=== PATIENT | male | born 1960 | race Two or more races ===

== ENCOUNTER 2018-11-13 16:24 | Emergency (ER) | payer OTHER ==
[2018-11-13] MEDS ORDERED: Sodium Chloride 0.9% 10 ML Syringe FLUSH PRN (17:44)
[2018-11-13 18:24] LABS: ANION GAP 10.5; CHLORIDE,CL 100 mmol/L (101-111); SODIUM,NA 135 mmol/L (135-145)
[2018-11-13] MEDS ORDERED: Iopamidol 612 MG/ML 100 ML Bottle IVPUSH ONE (19:21)
[2018-11-13] MEDS ORDERED: Sodium Chloride 0.9% 1,000 ML IV ONE (19:28)
--- NOTE | 2018-11-13 22:28 | EDM.PDOC ---
<Jeison Cheek - Last Filed: 11/13/18 22:22> ED HPI GENERAL MEDICAL PROBLEM - General Chief Complaint: General Stated Complaint: LOW BLOOD PRESSURE & OTHER PROBLEMS Time Seen by Provider: 11/13/18 17:00 - Related Data Allergies Allergy/AdvReac Type Severity Reaction Status Date / Time No Known Allergies Allergy Verified 11/13/18 16:38 Home Meds: Home Meds Alum Hydroxide/Mag Carbonate [Acid Gone] 1 tab PO DAILY 11/13/18 [History] Aspirin [Halfprin] 81 mg PO DAILY 11/13/18 [History] Cholecalciferol (Vitamin D3) [Vitamin D3] 1,000 unit PO DAILY 11/13/18 [History] Ciprofloxacin [Cipro XR 500 MG Tablet] 500 mg PO DAILY 11/13/18 [History] Ibuprofen 600 mg PO 11/13/18 [History] Levothyroxine Sodium [Synthroid] 150 mcg PO DAILY 11/13/18 [History] Multivits-Minerals/FA/Lycopene [One Daily [employer] Vibease Tablet] 1 each PO DAILY 11/13/18 [History] atorvaSTATin [Lipitor] 5 mg PO DAILY 11/13/18 [History] metroNIDAZOLE [Flagyl] 500 mg PO Q8H 11/13/18 [History] Past Medical History HEENT History: Reports: Impaired Vision Cardiovascular History: Reports: None Respiratory History: Reports: Intubation, Previous, Pneumonia, Recurrent Gastrointestinal History: Reports: Cholelithiasis, Diverticulosis, Pancreatitis , Other (See Below) Other Gastrointestinal History: fatty liver Genitourinary History: Reports: None Musculoskeletal History: Reports: None Neurological History: Reports: None Psychiatric History: Reports: None Endocrine/Metabolic History: Reports: None Hematologic History: Reports: Anemia Immunologic History: Reports: None Oncologic (Cancer) History: Reports: Esophageal Dermatologic History: Reports: None - Infectious Disease History Infectious Disease History: Reports: None - Past Surgical History Head Surgeries/Procedures: Reports: None Respiratory Surgical History: Reports: Other (See Below) Other Respiratory Surgeries/Procedures: chest tubes x3 in 2016 Oncologic Surgical History: Reports: Other (See Below) Other Oncologic Surgeries/Procedures: esophagealectomy Social & Family History - Family History Family Medical History: Noncontributory - Tobacco Use Smoking Status *Q: Never Smoker Second Hand Smoke Exposure: No - Caffeine Use Caffeine Use: Reports: Coffee - Recreational Drug Use Recreational Drug Use: No Course - Vital Signs Last Recorded V/S: Last Vital Signs Temp 100 F 11/13/18 22:32 Pulse 102 H 11/13/18 22:32 Resp 16 11/13/18 22:32 BP 100/77 11/13/18 22:32 Pulse Ox 98 11/13/18 22:32 - Orders/Labs/Meds Orders: Active Orders 24 hr Category Date Time Status Peripheral IV Care [RC] . DIRECTED Care 11/13/18 17:45 Active CULTURE BLOOD [BC] Stat Lab 11/13/18 18:43 Received CULTURE BLOOD [BC] Stat Lab 11/13/18 18:49 Received Blood Culture x2 Reflex Set [OM.PC] Stat Oth 11/13/18 18:25 Ordered Peripheral IV Insertion Adult [OM.PC] Stat Oth 11/13/18 17:44 Ordered Labs: Laboratory Tests 11/13/18 11/13/18 11/13/18 Range/Units 17:54 17:54 18:43 WBC 7.6 (5.0-10.0) 10^3/uL RBC 4.20 L (4.6-6.2) 10^6/uL Hgb 11.6 L (14.0-18.0) g/dL Hct 36.8 L (40.0-54.0) % MCV 87.6 (80-100) fL MCH 27.6 (27.0-34.0) pg MCHC 31.5 L (33.0-35.0) g/dL Plt Count 368 (150-450) 10^3/uL Neut % (Auto) 71.5 (42.2-75.2) % Lymph % (Auto) 6.9 L (20.5-50.1) % [place] % (Auto) 7.4 (2-8) % Eos % (Auto) 13.7 H (1.0-3.0) % Baso % (Auto) 0.5 (0.0-1.0) % Sodium 135 (135-145) mmol/L Potassium 3.5 L (3.6-5.0) mmol/L Chloride 100 L (101-111) mmol/L Carbon Dioxide 28.0 (21.0-31.0) mmol/L Anion Gap 10.5 BUN 6 L (7-18) mg/dL Creatinine 0.8 (0.6-1.3) mg/dL Est Cr Clr Drug Dosing 109.81 mL/min Estimated GFR (MDRD) > 60 BUN/Creatinine Ratio 7.50 Glucose 128 H (74-105) mg/dL Lactic Acid 1.6 (0.5-2.2) mmol/L Calcium 7.8 L (8.4-10.2) mg/dl Total Bilirubin 0.2 (0.2-1.0) mg/dL AST 17 (10-42) IU/L ALT 9 L (10-60) IU/L Alkaline Phosphatase 68 (42-121) IU/L Total Protein 6.7 (6.7-8.2) g/dl Albumin 2.9 L (3.2-5.5) g/dl Globulin 3.8 Albumin/Globulin Ratio 0.76 Amylase 35 (28-100) U/L Lipase 96 H (22-51) U/L Meds: Medications Discontinued Medications Generic Name Dose Route Start Last Admin Trade Name Freq PRN Reason Stop Dose Admin Sodium Chloride 1,000 mls @ 999 mls/hr 11/13/18 19:28 11/13/18 19:34 Normal Saline IV 11/13/18 20:28 999 mls/hr .BOLUS ONE Administration Iopamidol 100 ml 11/13/18 19:21 11/13/18 19:37 Isovue-300 (61%) IVPUSH 11/13/18 19:22 100 ml ONETIME ONE Administration Sodium Chloride 10 ml 11/13/18 17:44 11/13/18 17:56 Saline Flush FLUSH 10 ml ASDIRECTED PRN Administration Keep Vein Open Departure - Departure Disposition: DC/Tfer to [facility] 02 Clinical Impression: Colitis, Nephrolithiasis - Discharge Information Referrals: PCP,Unobtain [Primary Care Provider] - Forms: ED Department Discharge, Interfacility Transfer EMTALA - My Orders Last 24 Hours: My Active Orders 11/13/18 17:44 Peripheral IV Insertion Adult [OM.PC] Stat 11/13/18 17:45 Peripheral IV Care [RC] . DIRECTED 11/13/18 18:25 Blood Culture x2 Reflex Set [OM.PC] Stat 11/13/18 18:43 CULTURE BLOOD [BC] Stat 11/13/18 18:49 CULTURE BLOOD [BC] Stat - Assessment/Plan Last 24 Hours: My Active Orders 11/13/18 17:44 Peripheral IV Insertion Adult [OM.PC] Stat 11/13/18 17:45 Peripheral IV Care [RC] . DIRECTED 11/13/18 18:25 Blood Culture x2 Reflex Set [OM.PC] Stat 11/13/18 18:43 CULTURE BLOOD [BC] Stat 11/13/18 18:49 CULTURE BLOOD [BC] Stat <Sarah Perez - Last Filed: 11/14/18 16:08> ED HPI GENERAL MEDICAL PROBLEM - General Source of Information: Reports: Patient, Family, RN, RN Notes Reviewed History Limitations: Reports: No Limitations - History of Present Illness INITIAL COMMENTS - FREE TEXT/NARRATIVE: Pt to ER with with c/o low blood pressure at home, and bleeding from the rectum. Patient states that he has been having bleeding from the rectum for 4-5 weeks. States he has a hx of esophageal cancer with esophageal resection. Patient was concerned about the rectal bleeding and went to see his GI doctor. Patient had CT scan of chest and abdomen. Was dx with diffuse diverticulitis. Started on Cipro and Flagyl. These meds are almost completed. This was Nov 04. He states he has also been having fever and chills and diarrhea since Nov 03. States he followed up with Dr. Mcdaniel last week, and they discussed a colonoscopy at some point in the near future. He states his last upper GI endo was done in August. Patient states he is very weak and tired out, feels dehydrated. Due to esophageal resection, he can only drink small amounts of fluids. Onset: Gradual ED ROS GENERAL - Review of Systems Review Of Systems: ROS reveals no pertinent complaints other than HPI. ED EXAM, GENERAL - Physical Exam Exam: See Below Exam Limited By: No Limitations General Appearance: Alert, WD/WN, No Apparent Distress Eye Exam: Bilateral Eye: EOMI, Normal Inspection Ears: Normal External Exam, Hearing Grossly Normal Nose: Normal Inspection Throat/Mouth: Normal Voice, No Airway Compromise, Other (dry mucous membranes) Head: Atraumatic, Normocephalic Neck: Normal Inspection, Supple, Non-Tender, Full Range of Motion Respiratory/Chest: No Respiratory Distress, Lungs Clear, Normal Breath Sounds, No Accessory Muscle Use, Chest Non-Tender Cardiovascular: Normal Peripheral Pulses, Regular Rate, Rhythm, No Edema, No Gallop, No JVD, No Murmur, No Rub Peripheral Pulses: 2+: Radial (L), Radial (R) GI/Abdominal: Normal Bowel Sounds, Soft, No Organomegaly, No Distention, No Abnormal Bruit, No Mass, Pelvis Stable, Tender (generalized) (Male) Exam: Deferred Rectal (Males) Exam: Deferred Back Exam: Normal Inspection, Full Range of Motion, NT Extremities: Normal Inspection, Normal Range of Motion, Non-Tender, Normal Capillary Refill, No Pedal Edema Neurological: Alert, Oriented, CN II-XII Intact, Normal Cognition, Normal Gait, Normal Reflexes, No Motor/Sensory Deficits Psychiatric: Normal Affect, Normal Mood Skin Exam: Warm, Dry, Intact, Normal Color, No Rash Lymphatic: No Adenopathy Course - Radiology Interpretation Free Text/Narrative:: CT of Abdomen/Pelvis with contrast: FINDINGS: Lungs: Lung bases have a small amount of platelike atelectasis or parenchymal scar. Liver: No suspicious lesions. Gallbladder and bile ducts: No acute or concerning findings. Pancreas: There are a few pancreatic calcifications. Spleen: No suspicious lesions. Adrenals: No suspicious nodule. Kidneys and ureters: 10 mm nonobstructing left renal calculus. Stomach and bowel: Esophagectomy with gastric pullup. Diffuse colonic wall thickening with moderate inflammatory change. Appendix: No evidence of appendicitis. Intraperitoneal space: No free air. No significant fluid collection. Vasculature: Unremarkable. No acute findings Lymph nodes: Unremarkable. Bladder: Unremarkable as visualized. Reproductive: Unremarkable as visualized. Bones/joints: Unremarkable. No acute fracture. Soft tissues: Unremarkable. IMPRESSION: Diffuse colitis could be infectious or inflammatory bowel disease. Left-sided nephrolithiasis. Thank you for allowing us to participate in the care of your patient. Dictated and Authenticated by: Sam Brooks MD 11/13/2018 9:30 PM Central Time ([place] & [place]) - Re-Assessments/Exams Free Text/Narrative Re-Assessment/Exam: Discussed patient case with Dr. Sauer. He states that the patient should be transferred to [place] for referral to GI. Discussed patient case with [facility]. He states that he feels if the CT has not changed, the patient can be managed in [place]. Patient handed over to Dr. Cheek at shift changes. CT results pending. Departure - Departure Time of Disposition: 22:41 Condition: Fair - Discharge Information *PRESCRIPTION DRUG MONITORING PROGRAM REVIEWED*: No *COPY OF PRESCRIPTION DRUG MONITORING REPORT IN PATIENT BO: No
== END 2018-11-13 22:43 ==
LOC: DL.ED 16:24
DX: K52.9 Noninfective gastroenteritis and colitis, unspecified (principal); N20.0 Calculus of kidney; Z98.890 Other specified postprocedural states; Z79.82 Long term (current) use of aspirin; Z79.899 Other long term (current) drug therapy
CPT/HCPCS: 36415; 74177; 80053; 82150; 83605; 83690; 85025; 87040; 96360; 99285; J7030; Q9967

== ENCOUNTER 2019-04-10 11:58 | Emergency (ER) | payer OTHER ==
[2019-04-10] MEDS ORDERED: Sodium Chloride 0.9% 1,000 ML IV ONE (13:12)
[2019-04-10] MEDS ORDERED: Sodium Chloride 0.9% 10 ML Syringe FLUSH PRN (13:12)
[2019-04-10] MEDS ORDERED: Ondansetron 4 MG/2 ML SDV IV ONE (13:19)
[2019-04-10 13:59] LABS: ANION GAP 13.7; CHLORIDE,CL 98 mmol/L (101-111); SODIUM,NA 135 mmol/L (135-145)
--- NOTE | 2019-04-10 14:14 | EDM.PDOC ---
Scribed by Cayla Stevenson 04/10/19 1322 for Pedrito Michel MD ED HPI GENERAL MEDICAL PROBLEM - General Chief Complaint: Gastrointestinal Problem Stated Complaint: DEHYDRATION POSSIBLE Time Seen by Provider: 04/10/19 13:12 Source of Information: Reports: Patient, RN, RN Notes Reviewed History Limitations: Reports: No Limitations - History of Present Illness INITIAL COMMENTS - FREE TEXT/NARRATIVE: Patient presents to ER via POV with . HE was diagnosed with ulcerative colitis in October. He was in hospital at [facility] (March 25) got 3 units of RBC's while in hospital (hg 7.6). Patient states feels dehydrate. He also states has abdominal pain that comes and goes, not having any at present. He states not bleeding as much. He states bleeds with stools. While in hospital had positive blood cultures and C. Diff, had PICC line established and on outpatient antibiotics. The PICC discontinued on Thursday. He has an appointment next Thursday for blood work (). He is able to eat and drink but not as much, is down with his weight over the last couple of months. Onset: Gradual Duration: Getting Worse Location: Reports: Abdomen Severity: Moderate Improves with: Reports: None Worsens with: Reports: None Associated Symptoms: Reports: No Other Symptoms - Related Data Allergies Allergy/AdvReac Type Severity Reaction Status Date / Time No Known Allergies Allergy Verified 04/10/19 13:01 Home Meds: Home Meds Cholecalciferol (Vitamin D3) [Vitamin D3] 1,000 unit PO DAILY 11/13/18 [History] Levothyroxine Sodium [Synthroid] 125 mcg PO DAILY 11/13/18 [History] atorvaSTATin [Lipitor] 5 mg PO DAILY 11/13/18 [History] Acetaminophen 650 mg PO Q4HR PRN 04/06/19 [History] Pantoprazole [ProTONIX] 40 mg PO DAILY 04/06/19 [History] Potassium Chloride 8 meq PO DAILY 04/06/19 [History] predniSONE [Prednisone] 20 mg PO BID 04/06/19 [History] Past Medical History HEENT History: Reports: Impaired Vision Other HEENT History: wears glasses Cardiovascular History: Reports: None Respiratory History: Reports: COPD, Intubation, Previous, Pneumonia, Recurrent Gastrointestinal History: Reports: Cholelithiasis, Diverticulosis, Pancreatitis , Other (See Below) Other Gastrointestinal History: fatty liver. C-Diff. ulcerative colitis Genitourinary History: Reports: None Other Genitourinary History: enlarged prostate Musculoskeletal History: Reports: None Neurological History: Reports: None Psychiatric History: Reports: None Endocrine/Metabolic History: Reports: Hypothyroidism Hematologic History: Reports: Anemia, Blood Transfusion(s) Immunologic History: Reports: None Oncologic (Cancer) History: Reports: Esophageal, Other (See Below) Other Oncologic History: stomach Dermatologic History: Reports: None - Infectious Disease History Infectious Disease History: Reports: C-Difficile - Past Surgical History Head Surgeries/Procedures: Reports: None Respiratory Surgical History: Reports: Other (See Below) Other Respiratory Surgeries/Procedures: chest tubes x3 in 2016 GI Surgical History: Reports: Colonoscopy, EGD, Other (See Below) Other GI Surgeries/Procedures: Stomach/esophageal cancer. upper 1/3 of stomach and 2/3 of esophagus removed. Other Musculoskeletal Surgeries/Procedures:: Surgery to removed bones in thumbs bilateral Oncologic Surgical History: Reports: Other (See Below) Other Oncologic Surgeries/Procedures: esophagealectomy Social & Family History - Family History Family Medical History: Noncontributory - Tobacco Use Smoking Status *Q: Never Smoker Second Hand Smoke Exposure: No - Caffeine Use Caffeine Use: Reports: None - Recreational Drug Use Recreational Drug Use: No ED ROS GENERAL - Review of Systems Review Of Systems: Comprehensive ROS is negative, except as noted in HPI. ED EXAM, GENERAL - Physical Exam Exam: See Below Exam Limited By: No Limitations General Appearance: Alert, WD/WN, No Apparent Distress Eye Exam: Bilateral Eye: Normal Inspection (No scleral icterus) Nose: Normal Inspection Throat/Mouth: Normal Inspection, Normal Lips, Normal Teeth, Normal Gums, Normal Oropharynx, Normal Voice, No Airway Compromise Head: Atraumatic, Normocephalic Neck: Normal Inspection Respiratory/Chest: No Respiratory Distress, Lungs Clear, Normal Breath Sounds, No Accessory Muscle Use, Chest Non-Tender Cardiovascular: Regular Rate, Rhythm, No Edema, Tachycardia GI/Abdominal: Normal Bowel Sounds, Soft, No Distention, No Abnormal Bruit, Tender (Mild generalized abdominal tenderness.). No: Guarding, Rigid, Rebound Back Exam: Normal Inspection Extremities: Normal Inspection Neurological: Alert, Oriented, No Motor/Sensory Deficits Psychiatric: Normal Mood Skin Exam: Warm, Dry, Intact, Normal Color, No Rash Course - Vital Signs Last Recorded V/S: Last Vital Signs Temp 98 F 04/10/19 12:46 Pulse 79 04/10/19 13:24 Resp 16 04/10/19 12:46 BP 108/69 04/10/19 13:24 Pulse Ox 98 04/10/19 12:46 - Orders/Labs/Meds Orders: Active Orders 24 hr Category Date Time Status Peripheral IV Care [RC] . DIRECTED Care 04/10/19 13:12 Active Sodium Chloride 0.9% [Saline Flush] Med 04/10/19 13:12 Active 10 ml FLUSH ASDIRECTED PRN Peripheral IV Insertion Adult [OM.PC] Stat Oth 04/10/19 13:11 Ordered Medication Orders Sodium Chloride (Saline Flush) 10 ml FLUSH ASDIRECTED PRN PRN Reason: Keep Vein Open Last Admin: 04/10/19 13:35 Dose: 10 ml Labs: Laboratory Tests 04/10/19 04/10/19 Range/Units 13:33 13:33 WBC 6.8 (5.0-10.0) 10^3/uL RBC 3.80 L (4.6-6.2) 10^6/uL Hgb 9.0 L D (14.0-18.0) g/dL Hct 29.6 L (40.0-54.0) % MCV 77.9 L D (80-100) fL MCH 23.7 L (27.0-34.0) pg MCHC 30.4 L (33.0-35.0) g/dL Plt Count 442 (150-450) 10^3/uL Neut % (Auto) 81.5 H (42.2-75.2) % Lymph % (Auto) 9.4 L (20.5-50.1) % [place] % (Auto) 7.2 (2-8) % Eos % (Auto) 1.8 (1.0-3.0) % Baso % (Auto) 0.1 (0.0-1.0) % Sodium 135 (135-145) mmol/L Potassium 3.7 (3.6-5.0) mmol/L Chloride 98 L (101-111) mmol/L Carbon Dioxide 27.0 (21.0-31.0) mmol/L Anion Gap 13.7 BUN 10 (7-18) mg/dL Creatinine 0.9 (0.6-1.3) mg/dL Est Cr Clr Drug Dosing 93.50 mL/min Estimated GFR (MDRD) > 60 BUN/Creatinine Ratio 11.11 Glucose 101 (74-105) mg/dL Calcium 8.6 (8.4-10.2) mg/dl Total Bilirubin 0.5 (0.2-1.0) mg/dL AST 14 (10-42) IU/L ALT 15 (10-60) IU/L Alkaline Phosphatase 72 (42-121) IU/L Total Protein 6.8 (6.7-8.2) g/dl Albumin 2.7 L (3.2-5.5) g/dl Globulin 4.1 Albumin/Globulin Ratio 0.66 Meds: Medications Generic Name Dose Route Start Last Admin Trade Name Freq PRN Reason Stop Dose Admin Sodium Chloride 10 ml 04/10/19 13:12 04/10/19 13:35 Saline Flush FLUSH 10 ml ASDIRECTED PRN Administration Keep Vein Open Discontinued Medications Generic Name Dose Route Start Last Admin Trade Name Freq PRN Reason Stop Dose Admin Sodium Chloride 1,000 mls @ 999 mls/hr 04/10/19 13:12 04/10/19 13:35 Normal Saline IV 04/10/19 14:12 999 mls/hr .BOLUS ONE Administration Ondansetron HCl 4 mg 04/10/19 13:19 04/10/19 13:35 Zofran IV 04/10/19 13:20 4 mg ONETIME ONE Administration Departure - Departure Time of Disposition: 15:00 Disposition: Home, Self-Care 01 Condition: Fair Clinical Impression: Dehydration, History of ulcerative colitis, Chronic abdominal pain - Discharge Information *PRESCRIPTION DRUG MONITORING PROGRAM REVIEWED*: Not Applicable *COPY OF PRESCRIPTION DRUG MONITORING REPORT IN PATIENT BO: Not Applicable Instructions: Dehydration, Adult, [id number] Forms: ED Department Discharge Additional Instructions: Rx: Zofran 4mg [employer] P[employer] Protein Drink Follow up with your GI specialist to discuss the abdominal pain. Sepsis Event Note - Evaluation Sepsis Screening Result: No Definite Risk - Focused Exam Vital Signs: Vital Signs Temp Pulse Resp BP Pulse Ox 04/10/19 13:24 79 108/69 04/10/19 12:46 98 F 105 H 16 94/61 98 Date Exam was Performed: 04/10/19 Time Exam was Performed: 14:12 - My Orders Last 24 Hours: My Active Orders 04/10/19 13:11 Peripheral IV Insertion Adult [OM.PC] Stat 04/10/19 13:12 Peripheral IV Care [RC] . DIRECTED Sodium Chloride 0.9% [Saline Flush] 10 ml FLUSH ASDIRECTED PRN - Assessment/Plan Last 24 Hours: My Active Orders 04/10/19 13:11 Peripheral IV Insertion Adult [OM.PC] Stat 04/10/19 13:12 Peripheral IV Care [RC] . DIRECTED Sodium Chloride 0.9% [Saline Flush] 10 ml FLUSH ASDIRECTED PRN I have read and agree with the documentation that has been completed regarding this visit. By signing this record, I attest that the documentation was completed in my physical presence and is an accurate record of the encounter.
== END 2019-04-10 14:50 | disposition home or self-care (01) ==
LOC: DL.ED 11:58
DX: E86.0 Dehydration (principal); R10.9 Unspecified abdominal pain; G89.29 Other chronic pain; Z87.19 Personal history of other diseases of the digestive system
CPT/HCPCS: 36415; 80053; 85025; 96361; 96374; 99284; J2405; J7030

== ENCOUNTER 2019-11-05 09:29 | Emergency (ER) | payer OTHER ==
[2019-11-05] MEDS ORDERED: Sodium Chloride 0.9% 10 ML Syringe FLUSH PRN (09:40)
[2019-11-05 10:10] LABS: ANION GAP 10.5 mEq/L (7-13); CHLORIDE,CL 100 mmol/L (98-107); SODIUM,NA 138 mmol/L (136-145)
--- NOTE | 2019-11-05 10:13 | CR ---
PROCEDURE INFORMATION: Exam: XR Chest, 1 View Exam date and time: 11/05/2019 10:07 AM Age: 59 years old Clinical indication: Chest pain TECHNIQUE: Imaging protocol: XR of the chest Views: 1 view. COMPARISON: No relevant prior studies available. FINDINGS: Lungs: Focal airspace opacity is present within the left lower lobe concerning for possible pneumonia. Lungs are otherwise clear. There is no pulmonary edema. Pleural space: There is no pleural effusion or pneumothorax. Heart/Mediastinum: Heart size is normal. Bones/joints: Unremarkable. IMPRESSION: 1. Focal airspace opacity in the left lobe concerning for possible pneumonia.
--- NOTE | 2019-11-05 10:48 | EDM.PDOC ---
"<Hugo Roy - Last Filed: 11/05/19 11:22> ED HPI GENERAL MEDICAL PROBLEM - General Chief Complaint: Chest Pain Stated Complaint: CHEST PAIN Time Seen by Provider: 11/05/19 10:00 Source of Information: Reports: Patient History Limitations: Reports: No Limitations - History of Present Illness INITIAL COMMENTS - FREE TEXT/NARRATIVE: Patient is a 59 yo male here today with chest pain. His pain occurs on inspiration, particularly deep inspiration. It is located on the left central chest. It is sharp and repeatable with every inspiration. Patient was told 1.5 weeks ago, after testing that he has chronic bronchitis. He was started on steroid and spiriva at that time. He is not sure if that has any relavence to his chest pain. He has a chronic cough that is productive and has a 38-40 year history of smoking, having quitin 2016. Patient tried tylenol and ibuprofen at home for his pain which worked a little. Pain radiates to shoulder and back sometimes. No known trauma to the area. No known allergies. Currently a non-smoker. 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, Other (see below) (ibuprofen) Chest Pain Score (Numeric/FACES): 4 - Related Data Allergies Allergy/AdvReac Type Severity Reaction Status Date / Time adhesive tape Allergy Other Verified 11/05/19 09:37 Home Meds: Home Meds Cholecalciferol (Vitamin D3) [Vitamin D3] 1,000 unit PO DAILY 11/13/18 [History] Levothyroxine Sodium [Synthroid] 125 mcg PO DAILY 11/13/18 [History] atorvaSTATin [Lipitor] 5 mg PO DAILY 11/13/18 [History] Acetaminophen 650 mg PO Q4HR PRN 04/06/19 [History] Pantoprazole [ProTONIX] 40 mg PO DAILY 04/06/19 [History] Potassium Chloride 8 meq PO DAILY 04/06/19 [History] predniSONE [Prednisone] 20 mg PO BID 04/06/19 [History] Albuterol [Take Home: Albuterol 18 GM, 1 INH Pack] 2 puff INH Q4HR PRN 11/05/19 [History] Tiotropium [Spiriva HandiHaler] 2 puff IN DAILY 11/05/19 [History] Past Medical History HEENT History: Reports: Impaired Vision Other HEENT History: wears glasses Cardiovascular History: Reports: Hypertension Respiratory History: Reports: COPD, Intubation, Previous, Pneumonia, Recurrent Gastrointestinal History: Reports: Cholelithiasis, Diverticulosis, Pancreatitis, Other (See Below) Other Gastrointestinal History: fatty liver. C-Diff. ulcerative colitis Genitourinary History: Reports: None Other Genitourinary History: enlarged prostate Musculoskeletal History: Reports: None Neurological History: Reports: None Psychiatric History: Reports: None Endocrine/Metabolic History: Reports: Hypothyroidism Hematologic History: Reports: Anemia, Blood Transfusion(s) Immunologic History: Reports: None Oncologic (Cancer) History: Reports: Esophageal, Other (See Below) Other Oncologic History: stomach Dermatologic History: Reports: None - Infectious Disease History Infectious Disease History: Reports: Chicken Pox - Past Surgical History Head Surgeries/Procedures: Reports: None Respiratory Surgical History: Reports: Other (See Below) Other Respiratory Surgeries/Procedures: chest tubes x3 in 2016 GI Surgical History: Reports: Colonoscopy, Colostomy, EGD, Other (See Below) Other GI Surgeries/Procedures: Stomach/esophageal cancer. upper 1/3 of stomach and 2/3 of esophagus removed. Other Musculoskeletal Surgeries/Procedures:: Surgery to removed bones in thumbs bilateral Oncologic Surgical History: Reports: Other (See Below) Other Oncologic Surgeries/Procedures: esophagealectomy Social & Family History - Family History Family Medical History: Noncontributory - Tobacco Use Smoking Status *Q: Never Smoker Second Hand Smoke Exposure: No - Caffeine Use Caffeine Use: Reports: Coffee - Recreational Drug Use Recreational Drug Use: No ED ROS GENERAL - Review of Systems Review Of Systems: Comprehensive ROS is negative, except as noted in HPI. ED EXAM, GENERAL - Physical Exam Exam: See Below Exam Limited By: No Limitations General Appearance: Alert, No Apparent Distress Ears: Normal External Exam Ear Exam: Bilateral Ear: Auricle Normal Nose: Normal Inspection Throat/Mouth: Other (upper partial) Head: Atraumatic Neck: Normal Inspection Respiratory/Chest: No Respiratory Distress, Rhonchi (lower left on deep inspiration) Cardiovascular: Normal Peripheral Pulses, Regular Rate, Rhythm, No Edema Peripheral Pulses: 2+: Radial (L), Radial (R) GI/Abdominal: Soft (Male) Exam: Deferred Rectal (Males) Exam: Deferred Back Exam: Normal Inspection Extremities: Normal Inspection Neurological: Alert, Oriented, Normal Cognition Psychiatric: Normal Affect, Normal Mood Skin Exam: Warm, Dry, Intact, Normal Color Lymphatic: No Adenopathy Course - Vital Signs Text/Narrative:: Upon admission to the ED, patient received CBC, CMP, troponin, EKG, CXR. Results returned concerning for PNA on CXR. Trop negative. CT chest noncon ordered to further characterize the abnormal finding on CXR. CT chows lingular PNA. Will discharge to home with antibiotics and incentive spirometry. Departure - Departure Time of Disposition: 11:10 Disposition: Home, Self-Care 01 Condition: Fair Clinical Impression: Pneumonia Qualifiers: Pneumonia type: due to unspecified organism Laterality: left Lung location: unspecified part of lung Qualified Code(s): J18.9 - Pneumonia, unspecified organism - Discharge Information *PRESCRIPTION DRUG MONITORING PROGRAM REVIEWED*: Not Applicable *COPY OF PRESCRIPTION DRUG MONITORING REPORT IN PATIENT BO: Not Applicable Instructions: How to Use an Incentive Spirometer, Doxycycline tablets or capsules, Community-Acquired Pneumonia, Adult, [id number] Forms: ED Department Discharge Additional Instructions: See primary care provider in one week in clinic. Rx: Doxycycline 100mg: Take antibiotics as directed. Use incentive spirometer as directed by respiratory therapist. Seek care if your condition worsens, such as with severe shortness of breath or high fever. Sepsis Event Note (ED) - Evaluation Sepsis Screening Result: No Definite Risk <Pedrito Michel - Last Filed: 11/05/19 11:24> Course - Vital Signs Last Recorded V/S: Last Vital Signs Temp 98.4 F 11/05/19 09:34 Pulse 86 11/05/19 09:34 Resp 18 11/05/19 09:34 BP 148/95 H 11/05/19 09:34 Pulse Ox 94 L 11/05/19 09:34 - Orders/Labs/Meds Orders: Active Orders 24 hr Category Date Time Status EKG 12 Lead [EKG Documentation Completion] [RC] STAT Care 11/05/19 09:38 Active Incentive Spirometry [RT Incentive Spirometry] [RC] Care 11/05/19 11:06 Active ASDIRECTED Peripheral IV Care [RC] . DIRECTED Care 11/05/19 09:40 Active Sodium Chloride 0.9% [Saline Flush] Med 11/05/19 09:40 Active 10 ml FLUSH ASDIRECTED PRN Peripheral IV Insertion Adult [OM.PC] Routine Oth 11/05/19 09:40 Ordered Medication Orders Sodium Chloride (Saline Flush) 10 ml FLUSH ASDIRECTED PRN PRN Reason: Keep Vein Open Last Admin: 11/05/19 09:45 Dose: 10 ml Documented by: HELEN Labs: Laboratory Tests 11/05/19 11/05/19 Range/Units 09:38 09:38 WBC 7.2 (5.0-10.0) 10^3/uL RBC 4.86 (4.6-6.2) 10^6/uL Hgb 12.4 L D (14.0-18.0) g/dL Hct 39.3 L (40.0-54.0) % MCV 80.9 D (80-100) fL MCH 25.5 L (27.0-34.0) pg MCHC 31.6 L (33.0-35.0) g/dL Plt Count 225 D (150-450) 10^3/uL Neut % (Auto) 80.7 H (42.2-75.2) % Lymph % (Auto) 7.9 L (20.5-50.1) % [place] % (Auto) 7.5 (2-8) % Eos % (Auto) 3.6 H (1.0-3.0) % Baso % (Auto) 0.3 (0.0-1.0) % Sodium 138 (136-145) mmol/L Potassium 3.5 (3.5-5.1) mmol/L Chloride 100 (98-107) mmol/L Carbon Dioxide 31 (21-32) mmol/L Anion Gap 10.5 (7-13) mEq/L BUN 5 L (7-18) mg/dL Creatinine 0.85 (0.70-1.30) mg/dL Est Cr Clr Drug Dosing 99.00 mL/min Estimated GFR (MDRD) > 60 BUN/Creatinine Ratio 5.9 (No establ ref range) Glucose 159 H (74-99) mg/dL Calcium 8.9 (8.5-10.1) mg/dL Total Bilirubin 0.5 (0.2-1.0) mg/dL AST 27 (15-37) U/L ALT 43 (16-63) U/L Alkaline Phosphatase 156 H (46-116) U/L Troponin I < 0.017 (0.000-0.056) ng/mL Total Protein 8.1 (6.4-8.2) g/dL Albumin 3.6 (3.4-5.0) g/dL Globulin 4.5 Albumin/Globulin Ratio 0.8 Meds: Medications Generic Name Dose Route Start Last Admin Trade Name Freq PRN Reason Stop Dose Admin Sodium Chloride 10 ml 11/05/19 09:40 11/05/19 09:45 Saline Flush FLUSH 10 ml ASDIRECTED PRN Administration Keep Vein Open - Radiology Interpretation Free Text/Narrative:: [facility] Final Radiology Report Call: [phone] assistance Online chat: [email or web address] Name: DANO MATHIS Age: 59Years M Date: 11/05/2019 SSN: -- : [id number] Study: CT CHEST WO CONT Requesting Physician: Hugo Roy Images: [id number] Addl Studies: Provided Clinical History: pleuritic chest pain, left sided, abnl cxr Contrast: Without Contrast Medium: Contrast Amount: Contrast Method: Page 1 of 2 PROCEDURE INFORMATION: Exam: CT Chest Without Contrast Exam date and time: 11/05/2019 10:35 AM Age: 59 years old Clinical indication: Abnormal findings; Abnormal radiologic exam of lung or chest; Additional info: Pleuritic chest pain, left sided, abnl cxr TECHNIQUE: Imaging protocol: Computed tomography of the chest without contrast. Radiation optimization: All CT scans at this facility use at least one of these dose optimization techniques: automated exposure control; mA and/or kV adjustment per patient size (includes targeted exams where dose is matched to clinical indication); or iterative reconstruction. COMPARISON: CR Chest 1V Frontal 11/05/2019 10:07 AM FINDINGS: Lungs: There is focal airspace opacity within the lingula. The finding is concerning for possible pneumonia. There is no pulmonary edema. There is no pulmonary fibrosis or bronchiectasis. Mild diffuse bronchial wall thickening present suggesting superimposed bronchitis. Pleural space: Unremarkable. No pneumothorax. No pleural effusion. Heart: Unremarkable. No cardiomegaly. No pericardial effusion. Aorta: Unremarkable. No aortic aneurysm. Lymph nodes: Unremarkable. No enlarged lymph nodes. Bones/joints: Unremarkable. No acute fracture. Soft tissues: Unremarkable. IMPRESSION: 1. Focal airspace consolidation within the lingula concerning for pneumonia. DANO MATHIS | Final Radiology Report CONFIDENTIALITY STATEMENT This report is intended only for use by the referring physician, and only in accordance with law. If you received this in error, call [phone]. Page 2 of 2 Thank you for allowing us to participate in the care of your patient. Dictated and Authenticated by: René Carrion MD 11/05/2019 10:55 AM Central Time ([place] & [place]) - Re-Assessments/Exams Free Text/Narrative Re-Assessment/Exam: 11/05/19 11:04 I saw and evaluated the patient. Discussed with resident and agree with residents findings and plan as documented in the residents note. Sepsis Event Note (ED) - Focused Exam Vital Signs: Vital Signs Temp Pulse Resp BP Pulse Ox 11/05/19 09:34 98.4 F 86 18 148/95 H 94 L"
--- NOTE | 2019-11-05 10:55 | CT ---
PROCEDURE INFORMATION: Exam: CT Chest Without Contrast Exam date and time: 11/05/2019 10:35 AM Age: 59 years old Clinical indication: Abnormal findings; Abnormal radiologic exam of lung or chest; Additional info: Pleuritic chest pain, left sided, abnl cxr TECHNIQUE: Imaging protocol: Computed tomography of the chest without contrast. Radiation optimization: All CT scans at this facility use at least one of these dose optimization techniques: automated exposure control; mA and/or kV adjustment per patient size (includes targeted exams where dose is matched to clinical indication); or iterative reconstruction. COMPARISON: CR Chest 1V Frontal 11/05/2019 10:07 AM FINDINGS: Lungs: There is focal airspace opacity within the lingula. The finding is concerning for possible pneumonia. There is no pulmonary edema. There is no pulmonary fibrosis or bronchiectasis. Mild diffuse bronchial wall thickening present suggesting superimposed bronchitis. Pleural space: Unremarkable. No pneumothorax. No pleural effusion. Heart: Unremarkable. No cardiomegaly. No pericardial effusion. Aorta: Unremarkable. No aortic aneurysm. Lymph nodes: Unremarkable. No enlarged lymph nodes. Bones/joints: Unremarkable. No acute fracture. Soft tissues: Unremarkable. IMPRESSION: 1. Focal airspace consolidation within the lingula concerning for pneumonia.
== END 2019-11-05 11:25 | disposition home or self-care (01) ==
LOC: DL.ED 09:29
DX: J18.9 Pneumonia, unspecified organism (principal); I10 Essential (primary) hypertension; J44.9 Chronic obstructive pulmonary disease, unspecified; E03.9 Hypothyroidism, unspecified; Z79.899 Other long term (current) drug therapy; Z91.048 Other nonmedicinal substance allergy status
CPT/HCPCS: 36415; 71045; 71250; 80053; 84484; 85025; 93005; 94010; 99285-25

== ENCOUNTER 2020-10-11 04:32 | Emergency (ER) | payer OTHER ==
[2020-10-11] MEDS ORDERED: Aspirin 81 MG Tab.Chew PO ONE (04:54)
--- NOTE | 2020-10-11 04:59 | EDM.PDOC ---
ED HPI GENERAL MEDICAL PROBLEM - General Chief Complaint: Chest Pain Stated Complaint: CHEST AND BACK SIDE MORE ON LEFT SIDE Time Seen by Provider: 10/11/20 04:45 Source of Information: Reports: Patient History Limitations: Reports: No Limitations - History of Present Illness INITIAL COMMENTS - FREE TEXT/NARRATIVE: This 60 yo male patient reports to the ED with left sided chest pain that radiated to his left posterior shoulder. The patient reports his symptoms started at 0230 this morning while he was up using the bathroom. The patient reports he did take an 81 mg aspirin and 3 ibuprofen with some symptom relief. The patient reports he waited at home hoping it would go away. The patient also has a history of bronchitis. Onset: Today Onset Date: 10/11/20 Onset Time: 02:30 Duration: Constant Location: Reports: Chest (left sided chest pain radiating to the left shoulder blade) Quality: Reports: Ache, Dull Severity: Moderate Improves with: Reports: None Worsens with: Reports: None Context: Reports: Other Associated Symptoms: Reports: Chest Pain Treatments [employer]: Reports: Aspirin, NSAIDS Left Chest Pain Score (Numeric/FACES): 4 - Related Data Allergies Allergy/AdvReac Type Severity Reaction Status Date / Time adhesive tape Allergy Other Verified 10/11/20 05:16 Home Meds: Home Meds Cholecalciferol (Vitamin D3) [Vitamin D3] 1,000 unit PO DAILY 11/13/18 [History] Levothyroxine Sodium [Synthroid] 125 mcg PO DAILY 11/13/18 [History] atorvaSTATin [Lipitor] 5 mg PO DAILY 11/13/18 [History] Acetaminophen 650 mg PO Q4HR PRN 04/06/19 [History] Potassium Chloride 8 meq PO DAILY 04/06/19 [History] Albuterol [Take Home: Albuterol 18 GM, 1 INH Pack] 2 puff INH Q4HR PRN 11/05/19 [History] Tiotropium [Spiriva HandiHaler] 2 puff IN DAILY 11/05/19 [History] Budesonide [Pulmicort Flexhaler] 1 puff INH BID 10/11/20 [History] Formoterol [Perforomist] 1 dose INH ASDIRECTED 10/11/20 [History] Omeprazole 40 mg PO DAILY 10/11/20 [History] Past Medical History HEENT History: Reports: Impaired Vision Other HEENT History: wears glasses Cardiovascular History: Reports: Hypertension Respiratory History: Reports: COPD, Intubation, Previous, Pneumonia, Recurrent Gastrointestinal History: Reports: Cholelithiasis, Diverticulosis, Pancreatitis, Other (See Below) Other Gastrointestinal History: fatty liver. C-Diff. ulcerative colitis Genitourinary History: Reports: None Other Genitourinary History: enlarged prostate Musculoskeletal History: Reports: None Neurological History: Reports: None Psychiatric History: Reports: None Endocrine/Metabolic History: Reports: Hypothyroidism Hematologic History: Reports: Anemia, Blood Transfusion(s) Immunologic History: Reports: None Oncologic (Cancer) History: Reports: Esophageal, Other (See Below) Other Oncologic History: stomach Dermatologic History: Reports: None - Infectious Disease History Infectious Disease History: Reports: Chicken Pox - Past Surgical History Head Surgeries/Procedures: Reports: None Respiratory Surgical History: Reports: Other (See Below) Other Respiratory Surgeries/Procedures: chest tubes x3 in 2016 GI Surgical History: Reports: Colonoscopy, Colostomy, EGD, Other (See Below) Other GI Surgeries/Procedures: Stomach/esophageal cancer. upper 1/3 of stomach and 2/3 of esophagus removed. Other Musculoskeletal Surgeries/Procedures:: Surgery to removed bones in thumbs bilateral Oncologic Surgical History: Reports: Other (See Below) Other Oncologic Surgeries/Procedures: esophagealectomy Social & Family History - Family History Family Medical History: No Pertinent Family History - Caffeine Use Caffeine Use: Reports: Coffee ED ROS GENERAL - Review of Systems Review Of Systems: Comprehensive ROS is negative, except as noted in HPI. ED EXAM, GENERAL - Physical Exam Exam: See Below Exam Limited By: No Limitations General Appearance: Alert, WD/WN, Moderate Distress Eye Exam: Bilateral Eye: EOMI, Normal Inspection, PERRL Ears: Normal External Exam, Normal Canal, Hearing Grossly Normal, Normal TMs Nose: Normal Inspection, Normal Mucosa, No Blood Throat/Mouth: Normal Inspection, Normal Lips, Normal Teeth, Normal Gums, Normal Oropharynx, Normal Voice, No Airway Compromise Head: Atraumatic, Normocephalic Neck: Normal Inspection, Supple, Non-Tender, Full Range of Motion Respiratory/Chest: No Respiratory Distress, Lungs Clear, Normal Breath Sounds, No Accessory Muscle Use, Chest Non-Tender Cardiovascular: Normal Peripheral Pulses, Regular Rate, Rhythm, No Edema, No Gallop, No JVD, No Murmur, No Rub GI/Abdominal: Normal Bowel Sounds, Soft, Non-Tender, No Organomegaly, No Distention, No Abnormal Bruit, No Mass (Male) Exam: Deferred Rectal (Males) Exam: Deferred Back Exam: Normal Inspection Extremities: Normal Inspection, Normal Range of Motion, Non-Tender, Normal Capillary Refill, No Pedal Edema Neurological: Alert, Oriented, CN II-XII Intact, Normal Cognition, Normal Gait, Normal Reflexes, No Motor/Sensory Deficits Psychiatric: Normal Affect, Normal Mood Skin Exam: Warm, Dry, Intact, Normal Color, No Rash Lymphatic: No Adenopathy #1 Interpretation EKG Date: 10/11/20 Time: 04:37 Rhythm: NSR Rate (Beats/Min): 72 [place]: Normal P-Wave: Present QRS: Normal ST-T: Normal QT: Normal Comparison: No Change Course - Vital Signs Last Recorded V/S: Last Vital Signs Temp 97.2 F 10/11/20 05:24 Pulse 76 10/11/20 05:24 Resp 16 10/11/20 05:24 BP 152/94 H 10/11/20 05:24 Pulse Ox 98 10/11/20 05:24 - Orders/Labs/Meds Orders: Active Orders 24 hr Category Date Time Status EKG Documentation Completion [RC] STAT Care 10/11/20 04:37 Active Chest 1V Frontal [CR] Urgent Exams 10/11/20 04:37 Ordered UA RFX IGOR AND CULT IF INDIC [URIN] Urgent Lab 10/11/20 04:37 Ordered cefTRIAXone [Rocephin] 1 gm Med 10/11/20 06:00 Ordered Sodium Chloride 0.9% [Normal Saline] 50 ml IV ONETIME Medication Orders Ceftriaxone Sodium 1 gm/ (Sodium Chloride) 50 mls @ 100 mls/hr IV ONETIME ONE Stop: 10/11/20 06:29 Labs: Laboratory Tests 10/11/20 10/11/20 10/11/20 Range/Units 04:42 04:42 04:42 WBC 8.5 (5.0-10.0) 10^3/uL RBC 4.84 (4.6-6.2) 10^6/uL Hgb 14.8 D (14.0-18.0) g/dL Hct 45.2 (40.0-54.0) % MCV 93.4 D (80-100) fL MCH 30.6 (27.0-34.0) pg MCHC 32.7 L (33.0-35.0) g/dL Plt Count 200 (150-450) 10^3/uL Neut % (Auto) 80.1 H (42.2-75.2) % Lymph % (Auto) 10.0 L (20.5-50.1) % [place] % (Auto) 7.3 (2-8) % Eos % (Auto) 2.4 (1.0-3.0) % Baso % (Auto) 0.2 (0.0-1.0) % Sodium 142 (136-145) mmol/L Potassium 3.8 (3.5-5.1) mmol/L Chloride 99 (98-107) mmol/L Carbon Dioxide 30 (21-32) mmol/L Anion Gap 16.8 H (7-13) mEq/L BUN 9 (7-18) mg/dL Creatinine 0.89 (0.70-1.30) mg/dL Est Cr Clr Drug Dosing 96.36 mL/min Estimated GFR (MDRD) > 60 BUN/Creatinine Ratio 10.1 (No establ ref range) Glucose 114 H (70-99) mg/dL Lactic Acid 1.2 (0.4-2.0) mmol/L Calcium 9.1 (8.5-10.1) mg/dL Total Bilirubin 0.7 (0.2-1.0) mg/dL AST 32 (15-37) U/L ALT 43 (16-63) U/L Alkaline Phosphatase 118 H (46-116) U/L Troponin I High Sens 5 (<=76) pg/mL Total Protein 8.4 H (6.4-8.2) g/dL Albumin 4.2 (3.4-5.0) g/dL Globulin 4.2 Albumin/Globulin Ratio 1.0 Meds: Medications Generic Name Dose Route Start Last Admin Trade Name Freq PRN Reason Stop Dose Admin Ceftriaxone Sodium 1 gm/ 50 mls @ 100 mls/hr 10/11/20 06:00 Sodium Chloride IV 10/11/20 06:29 ONETIME ONE Discontinued Medications Generic Name Dose Route Start Last Admin Trade Name Freq PRN Reason Stop Dose Admin Aspirin 243 mg 10/11/20 04:54 10/11/20 05:01 Aspirin 81 Mg Tab.Chew PO 10/11/20 04:55 243 mg ONETIME ONE Administration Methylprednisolone Sodium Succinate 125 mg 10/11/20 06:00 Methylprednisolone Sodium Succinate 125 Mg/2 Ml Sdv IVPUSH 10/11/20 06:01 ONETIME ONE Departure - Departure Time of Disposition: 06:03 Disposition: Home, Self-Care 01 Condition: Fair Clinical Impression: Bronchitis Instructions: Acute Bronchitis, Adult, [id number], Nonspecific Chest Pain, Adult, [id number] Forms: ED Department Discharge Care Plan Goals: The patient was advised of the examination, EKG, X-ray and lab results during the visit. The patient was given an IV dose of Rocephin (1 gram) and an IV dose of SoluMedrol (125 mg) while in the ED. The patient was discharged with a script for Azithromycin (250 mg) #6 to take 2 by mouth on day 1 (10/11/20) and 1 by mouth on days 2-5 and Prednisone (20 mg) #10 to take 2 by mouth daily (starting 10/12/20). If the patient has any additional symptoms or concerns, the patient should visit his primary care facility or return to the emergency department. Sepsis Event Note (ED) - Focused Exam Vital Signs: Vital Signs Temp Pulse Resp BP Pulse Ox 10/11/20 05:24 97.2 F 76 16 152/94 H 98 10/11/20 05:11 97.2 F 76 16 152/94 H 98 - My Orders Last 24 Hours: My Active Orders 10/11/20 04:37 EKG Documentation Completion [RC] STAT Chest 1V Frontal [CR] Urgent UA RFX IGOR AND CULT IF INDIC [URIN] Urgent 10/11/20 06:00 cefTRIAXone [Rocephin] 1 gm Sodium Chloride 0.9% [Normal Saline] 50 ml IV ONETIME - Assessment/Plan Last 24 Hours: My Active Orders 10/11/20 04:37 EKG Documentation Completion [RC] STAT Chest 1V Frontal [CR] Urgent UA RFX IGOR AND CULT IF INDIC [URIN] Urgent 10/11/20 06:00 cefTRIAXone [Rocephin] 1 gm Sodium Chloride 0.9% [Normal Saline] 50 ml IV ONETIME
[2020-10-11 05:22] LABS: ANION GAP 16.8 mEq/L (7-13); CHLORIDE,CL 99 mmol/L (98-107); SODIUM,NA 142 mmol/L (136-145)
[2020-10-11] MEDS ORDERED: methylPREDNISolone Sodium Succinate 125 MG/2 ML SDV IVPUSH ONE (06:00)
[2020-10-11] MEDS ORDERED: cefTRIAXone 1 GM in Sodium Chloride 0.9% 50 ML IV ONE (06:00)
--- NOTE | 2020-10-11 06:35 | CR ---
PROCEDURE INFORMATION: Exam: XR Chest Exam date and time: 10/11/2020 5:48 AM Age: 60 years old Clinical indication: Pain; Chest pressure; Additional info: Chest pain TECHNIQUE: Imaging protocol: XR of the chest. Views: 1 view. COMPARISON: CT Chest wo Cont 11/05/2019 10:35 AM FINDINGS: Lungs: Unremarkable. No consolidation. Pleural spaces: Unremarkable. No pleural effusion. No pneumothorax. Heart/Mediastinum: Unremarkable. No cardiomegaly. Bones/joints: Unremarkable. IMPRESSION: No acute disease.
== END 2020-10-11 07:26 | disposition home or self-care (01) ==
LOC: DL.ED 04:32
DX: J40 Bronchitis, not specified as acute or chronic (principal); I10 Essential (primary) hypertension; E03.9 Hypothyroidism, unspecified; Z79.899 Other long term (current) drug therapy; Z91.048 Other nonmedicinal substance allergy status
CPT/HCPCS: 36415; 71045; 80053; 81001; 81003; 83605; 84484; 85025; 87086; 93005; 93010; 96365; 96375; 99283; 99285-25; A9270-GY; J0696; J2930

== ENCOUNTER 2023-03-21 08:25 | Emergency (ER) | payer OTHER ==
[2023-03-21] MEDS ORDERED: Ondansetron 4 MG/2 ML SDV IVPUSH ONE (08:39)
[2023-03-21 08:59] LABS: BASOPHILS PERCENT AUTO 0.3 % (0.0-1.0); EOSINOPHILS PERCENT AUTO 0.3 % (1.0-3.0); HEMATOCRIT 52.1 % (40.0-54.0); HEMOGLOBIN 16.8 g/dL (14.0-18.0); LYMPHOCYTES PERCENT AUTO 3.6 % (20.5-50.1); MEAN CORPUSCULAR HEMOGLOBIN 30.2 pg (27.0-34.0); MEAN CORPUSCULAR HGB CONC 32.2 g/dL (33.0-35.0); MEAN CORPUSCULAR VOLUME 93.7 fL (80-100); MONOCYTES PERCENT AUTO 5.7 % (2-8); NEUTROPHILS PERCENT AUTO 90.1 % (42.2-75.2); PLATELET COUNT,PLT 215 10^3/uL (150-450); RED BLOOD CELL COUNT 5.56 10^6/uL (4.6-6.2); WHITE BLOOD CELL COUNT,WBC 9.9 10^3/uL (5.0-10.0)
[2023-03-21 09:07] LABS: APPEARANCE,URINE SLIGHTLY CLOUDY (CLEAR); BILIRUBIN,URINE SMALL (NEGATIVE); COLOR,URINE DARK YELLOW (YELLOW); GLUCOSE,URINE NEGATIVE (NEGATIVE); KETONES,URINE NEGATIVE (NEGATIVE); LEUKOCYTE ESTERASE,URINE NEGATIVE (NEGATIVE); NITRITE,URINE NEGATIVE (NEGATIVE); OCCULT BLOOD,URINE LARGE (NEGATIVE); PH,URINE 5.5 (5.0-9.0); PROTEIN,URINE 100 (NEGATIVE); UROBILINOGEN,URINE 0.2 mg/dL (0.2-1.0)
[2023-03-21] MEDS ORDERED: Lactated Ringers 1,000 ML IV ONE ×2 (09:07→09:49)
[2023-03-21 09:17] LABS: AMORPHOUS SEDIMENT,URINE MODERATE /HPF (NOT SEEN); BACTERIA,URINE FEW /HPF (0-FEW/HPF); EPITHELIAL CELLS,URINE FEW /HPF (NOT SEEN); MUCUS,URINE MANY /LPF (NOT SEEN); RBC,URINE >100 /HPF (0-5)
[2023-03-21 09:17] LABS: ALBUMIN 4.3 g/dL (3.4-5.0); ANION GAP 15.4 mEq/L (7-13); BILIRUBIN TOTAL 0.9 mg/dL (0.2-1.0); BUN/CREATININE RATIO 16.2 (No establ ref range); CALCIUM 9.8 mg/dL (8.5-10.1); CREATININE 1.3 mg/dL (0.70-1.30); EST CRCL DRUG DOSING (CG) 64.36 mL/min; POTASSIUM,K 4.4 mmol/L (3.5-5.1); PROTEIN TOTAL,TP 8.5 g/dL (6.4-8.2)
[2023-03-21 09:18] LABS: HYALINE CASTS,URINE RARE
[2023-03-21] MEDS ORDERED: Magnesium Sulfate/Water 2 GM in Premix Bag 1 BAG IV ONE (10:11)
== END 2023-03-21 11:51 | disposition home or self-care (01) ==
LOC: DL.ED 08:25
DX: R11.2 Nausea with vomiting, unspecified (principal); R19.7 Diarrhea, unspecified; I10 Essential (primary) hypertension; J44.9 Chronic obstructive pulmonary disease, unspecified; E03.9 Hypothyroidism, unspecified; Z79.899 Other long term (current) drug therapy; Z87.891 Personal history of nicotine dependence; Z91.048 Other nonmedicinal substance allergy status
CPT/HCPCS: 36415; 80053; 81001; 83735; 85025; 96361; 96365; 96375; 99283; 99284; J2405; J3475; J7120

== ENCOUNTER 2024-10-03 20:32 | Emergency (ER) | payer OTHER ==
[2024-10-03] MEDS ORDERED: Sodium Chloride 0.9% 10 ML Syringe FLUSH PRN (20:57)
[2024-10-03 21:19] LABS: PLATELET COUNT,PLT 102 10^3/uL (150-450); RED BLOOD CELL COUNT 3.93 10^6/uL (4.6-6.2); WHITE BLOOD CELL COUNT,WBC 9.2 10^3/uL (5.0-10.0)
[2024-10-03 21:21] LABS: BASOPHILS PERCENT AUTO 0.4 % (0.0-1.0); EOSINOPHILS PERCENT AUTO 0.0 % (1.0-3.0); LYMPHOCYTES PERCENT AUTO 9.8 % (20.5-50.1); MONOCYTES PERCENT AUTO 9.7 % (2-8); NEUTROPHILS PERCENT AUTO 80.1 % (42.2-75.2)
[2024-10-03 21:35] LABS: ALANINE AMINOTRANSFERASE,ALT 33.0 U/L (16-63); ASPARTATE AMNIOTRANSFERASE,AST 28.0 U/L (15-37); BILIRUBIN TOTAL 0.3 mg/dL (0.2-1.0); BLOOD UREA NITROGEN,BUN 10.0 mg/dL (7-18); CARBON DIOXIDE,CO2 27.0 mmol/L (21-32); CHLORIDE,CL 101.0 mmol/L (98-107); CREATININE 0.86 mg/dL (0.70-1.30); EST CRCL DRUG DOSING (CG) 91.96 mL/min; GLUCOSE RANDOM 131.0 mg/dL (70-99); POTASSIUM,K 3.9 mmol/L (3.5-5.1); PROTEIN TOTAL,TP 7.5 g/dL (6.4-8.2); SODIUM,NA 137.0 mmol/L (136-145)
[2024-10-03 21:36] LABS: A/G RATIO 0.79; ESTIMATED GFR 98.0 mL/min (>=60)
[2024-10-03 21:38] LABS: LACTIC ACID 1.3 mmol/L (0.4-2.0)
[2024-10-03 22:05] LABS: BAND PERCENT MAN 10 %; LYMPHOCYTES PERCENT MAN 10 % (20-50); MONOCYTES PERCENT MAN 6 % (2-8); SEG NEUTROPHILS PERCENT MAN 74 % (42-75)
== END 2024-10-03 22:12 | disposition home or self-care (01) ==
LOC: DL.ED 20:32
DX: J18.9 Pneumonia, unspecified organism (principal); I10 Essential (primary) hypertension; E03.9 Hypothyroidism, unspecified; Z88.8 Allergy status to other drugs, medicaments and biological substances; Z79.899 Other long term (current) drug therapy; Z79.890 Hormone replacement therapy
CPT/HCPCS: 36415; 71046; 80053; 83605; 83735; 85025; 86140; 87040; 96374; 99283; J0696

== ENCOUNTER 2024-12-06 08:05 | Inpatient (IN) | payer OTHER ==
[2024-12-06 08:57] LABS: NEUTROPHILS PERCENT AUTO 91.7 % (42.2-75.2); PLATELET COUNT,PLT 111 10^3/uL (150-450); RED BLOOD CELL COUNT 3.47 10^6/uL (4.6-6.2); WHITE BLOOD CELL COUNT,WBC 11.4 10^3/uL (5.0-10.0)
[2024-12-06 08:58] LABS: BASOPHILS PERCENT AUTO 0.3 % (0.0-1.0); EOSINOPHILS PERCENT AUTO 0.1 % (1.0-3.0); LYMPHOCYTES PERCENT AUTO 2.5 % (20.5-50.1); MONOCYTES PERCENT AUTO 5.4 % (2-8)
[2024-12-06 09:18] LABS: LACTIC ACID 1.2 mmol/L (0.4-2.0)
[2024-12-06 09:24] LABS: ALANINE AMINOTRANSFERASE,ALT 25.0 U/L (16-63); ASPARTATE AMNIOTRANSFERASE,AST 22.0 U/L (15-37); BILIRUBIN TOTAL 0.4 mg/dL (0.2-1.0); BLOOD UREA NITROGEN,BUN 5.0 mg/dL (7-18); CARBON DIOXIDE,CO2 26.0 mmol/L (21-32); CHLORIDE,CL 102.0 mmol/L (98-107); CREATININE 0.57 mg/dL (0.70-1.30); EST CRCL DRUG DOSING (CG) 138.74 mL/min; GLUCOSE RANDOM 142.0 mg/dL (70-99); POTASSIUM,K 3.9 mmol/L (3.5-5.1); PROTEIN TOTAL,TP 8.1 g/dL (6.4-8.2); SODIUM,NA 139.0 mmol/L (136-145)
[2024-12-06 09:26] LABS: A/G RATIO 0.69; ESTIMATED GFR 111.0 mL/min (>=60)
[2024-12-06 09:30] LABS: APPEARANCE,URINE CLEAR (CLEAR); GLUCOSE,URINE NEGATIVE (NEGATIVE); OCCULT BLOOD,URINE TRACE-INTACT (NEGATIVE)
[2024-12-06 09:34] LABS: BAND PERCENT MAN 5 %; LYMPHOCYTES PERCENT MAN 3 % (20-50); SEG NEUTROPHILS PERCENT MAN 88 % (42-75)
[2024-12-06 09:35] LABS: MONOCYTES PERCENT MAN 4 % (2-8)
[2024-12-06 09:48] LABS: EPITHELIAL CELLS,URINE FEW /HPF (NOT SEEN)
[2024-12-06] MEDS: Iopamidol 755 Mg/ML 100 ML Bottle IVPUSH ONE (10:42)
[2024-12-06] MEDS: Tiotropium Bromide 4 GM Inhalation Spray (2.5mcg/1 dose; 10 doses) INH SCH (14:06)
[2024-12-06] MEDS: Formoterol/Mometasone 200-5 MCG 13 GM Inhaler INH ONE (14:07)
[2024-12-06] MEDS: Potassium Chloride 10 MEQ Tab.ER PO ONE (14:09)
[2024-12-06] MEDS: Omeprazole 20 MG Cap.CR PO ONE (14:09)
[2024-12-06] MEDS: Tiotropium Bromide 4 GM Inhalation Spray (2.5mcg/1 dose; 10 doses) INH ONE (14:10)
[2024-12-06] MEDS: Cholecalciferol (Vitamin D3) 25 MCG Tab PO ONE (14:10)
[2024-12-06] MEDS: Multivitamins with Iron/Calcium/Folic Acid/Minerals Tab PO ONE (14:10)
[2024-12-06] MEDS: Cholecalciferol (Vitamin D3) 10 MCG Tab ONE (14:31)
[2024-12-06] MEDS ORDERED: 50% Dextrose in Water 50 ML Syringe IVPUSH PRN (14:35)
[2024-12-06] MEDS: Ondansetron 4 MG/2 ML SDV IVPUSH PRN (16:36)
[2024-12-06] MEDS: Formoterol/Mometasone 200-5 MCG 13 GM Inhaler INH SCH (22:32)
[2024-12-06] MEDS: Multivitamins with Iron/Calcium/Folic Acid/Minerals Tab PO SCH (22:38)
[2024-12-06] MEDS: Insulin Glarg,Human.Rec.Analog 100 Unit/ML 10 ML Vial SUBCUT SCH (22:39)
[2024-12-06] MEDS: Heparin Sodium 5,000 Units/ML Vial SUBCUT SCH (22:50)
[2024-12-07] MEDS: Fluticasone NASAL Spray 16 GM Bottle NASBOTH SCH (00:40)
[2024-12-07 06:33] LABS: BASOPHILS PERCENT AUTO 0.1 % (0.0-1.0); EOSINOPHILS PERCENT AUTO 0.2 % (1.0-3.0); LYMPHOCYTES PERCENT AUTO 3.0 % (20.5-50.1); MONOCYTES PERCENT AUTO 5.9 % (2-8); NEUTROPHILS PERCENT AUTO 90.8 % (42.2-75.2); PLATELET COUNT,PLT 106 10^3/uL (150-450); RED BLOOD CELL COUNT 3.09 10^6/uL (4.6-6.2); WHITE BLOOD CELL COUNT,WBC 16.9 10^3/uL (5.0-10.0)
[2024-12-07 06:55] LABS: ALANINE AMINOTRANSFERASE,ALT 16.0 U/L (16-63); ASPARTATE AMNIOTRANSFERASE,AST 15.0 U/L (15-37); BILIRUBIN DIRECT 0.4 mg/dL (0.0-0.2); BILIRUBIN INDIRECT 0.3; BILIRUBIN TOTAL 0.7 mg/dL (0.2-1.0); BLOOD UREA NITROGEN,BUN 6.0 mg/dL (7-18); CARBON DIOXIDE,CO2 26.0 mmol/L (21-32); CHLORIDE,CL 105.0 mmol/L (98-107); CREATININE 0.73 mg/dL (0.70-1.30); EST CRCL DRUG DOSING (CG) 108.33 mL/min; GLUCOSE RANDOM 107.0 mg/dL (70-99); PHOSPHORUS 2.0 mg/dL (2.6-4.7); POTASSIUM,K 3.4 mmol/L (3.5-5.1); PROTEIN TOTAL,TP 6.5 g/dL (6.4-8.2); SODIUM,NA 140.0 mmol/L (136-145)
[2024-12-07 06:57] LABS: A/G RATIO 0.63; ESTIMATED GFR 103.0 mL/min (>=60)
[2024-12-07] MEDS: Cholecalciferol (Vitamin D3) 25 MCG Tab PO SCH (08:10)
[2024-12-07] MEDS: Omeprazole 20 MG Cap.CR PO SCH (08:10)
[2024-12-07] MEDS: Potassium Chloride 10 MEQ Tab.ER PO SCH ×2 (08:11→17:45)
[2024-12-07 09:50] LABS: IRON,FE 18.0 ug/dL (65-175); PERCENT FE SATURATION 9.1 % (20.0-50.0)
[2024-12-07] MEDS: Potassium Chloride 20 MEQ in Premix Bag 1 BAG IV ONE (10:42)
[2024-12-07] MEDS: Magnesium Sulfate 2 GM/50 mL 2 GM in Premix Bag 1 BAG IV ONE (10:42)
[2024-12-07 11:04] LABS: FOLIC ACID 8.1 ng/mL (8.6-58.9)
[2024-12-07] MEDS: Phosphorus #1 250 MG Tab PO SCH (13:05)
[2024-12-07] MEDS: Sodium Chloride 0.9% 10 ML Syringe FLUSH PRN (20:36)
[2024-12-08 06:10] LABS: BASOPHILS PERCENT AUTO 0.2 % (0.0-1.0); EOSINOPHILS PERCENT AUTO 0.2 % (1.0-3.0); LYMPHOCYTES PERCENT AUTO 4.5 % (20.5-50.1); MONOCYTES PERCENT AUTO 7.0 % (2-8); NEUTROPHILS PERCENT AUTO 88.1 % (42.2-75.2); PLATELET COUNT,PLT 112 10^3/uL (150-450); RED BLOOD CELL COUNT 3.04 10^6/uL (4.6-6.2); WHITE BLOOD CELL COUNT,WBC 16.1 10^3/uL (5.0-10.0)
[2024-12-08 06:28] LABS: BLOOD UREA NITROGEN,BUN 4.0 mg/dL (7-18); CARBON DIOXIDE,CO2 27.0 mmol/L (21-32); CHLORIDE,CL 107.0 mmol/L (98-107); CREATININE 0.59 mg/dL (0.70-1.30); EST CRCL DRUG DOSING (CG) 134.04 mL/min; GLUCOSE RANDOM 100.0 mg/dL (70-99); POTASSIUM,K 3.8 mmol/L (3.5-5.1); SODIUM,NA 141.0 mmol/L (136-145)
[2024-12-08 06:29] LABS: ESTIMATED GFR 110.0 mL/min (>=60)
[2024-12-08 06:34] LABS: CREATININE 0.53 mg/dL (0.70-1.30); EST CRCL DRUG DOSING (CG) 149.21 mL/min; VANCOMYCIN RANDOM 22.8 ug/mL (No Normal Range)
[2024-12-08 06:35] LABS: ESTIMATED GFR 113.0 mL/min (>=60)
[2024-12-08] MEDS ORDERED: VANCOmycin 1.75 GM/350 ML 350 ML IV SCH (15:00)
[2024-12-10 16:42] LABS: MYCOPLASMA IGM 0.0 U/L (<=0.76)
== END 2024-12-08 11:55 | disposition home or self-care (01) | DRG 871 ==
LOC: DL.ED 08:05 → DL.MS 11:45
PROVIDERS: ADMIT Internal Medicine; ATTEND Internal Medicine
DX: A41.9 Sepsis, unspecified organism (principal); J18.9 Pneumonia, unspecified organism; J44.0 Chronic obstructive pulmonary disease with (acute) lower respiratory infection; C34.90 Malignant neoplasm of unspecified part of unspecified bronchus or lung; E03.9 Hypothyroidism, unspecified; E11.9 Type 2 diabetes mellitus without complications; K21.9 Gastro-esophageal reflux disease without esophagitis; E86.0 Dehydration; E83.39 Other disorders of phosphorus metabolism; H54.7 Unspecified visual loss; E83.42 Hypomagnesemia; E87.6 Hypokalemia; E78.00 Pure hypercholesterolemia, unspecified; I10 Essential (primary) hypertension; D64.9 Anemia, unspecified; Z85.01 Personal history of malignant neoplasm of esophagus; Z98.890 Other specified postprocedural states; Z79.899 Other long term (current) drug therapy; Z79.84 Long term (current) use of oral hypoglycemic drugs; Z87.891 Personal history of nicotine dependence
CPT/HCPCS: 36415; 71046; 71275; 80048; 80053; 80076; 80202; 81001; 82565; 82607; 82746; 82947; 83540; 83550; 83605; 83735; 84100; 84145; 85025; 86140; 86738; 87040; 87086; 87428-QW; 87641; 87899; 94640; 94762; 96361; 96374; 99223; 99233; 99239; 99285-25; 99291; A9270-GY; J0692; J1642; J1644; J1808; J1815-GY; J2405; J2543; J3375; J3475; J3480; J7030; J7040; Q0138; Q9967